=== PATIENT | female | born 1990 | race Caucasian/White ===

== ENCOUNTER → 2016-12-28 | Outpatient (CLI) | payer OTHER ==
[~2016-12-28] MED LIST: ALBUAER2 INH; ASPI-461 PO; CITA40TA4 PO; FLUT1INH PO; PRENTAB26 PO; SUMA1INJ5 IM; SUMA20SP
[2016-12-28 15:46] LABS: BASO % 0.1 %; BASO ABS # 0.01 K/uL (0-0.2); COMPLETE YES; EOS % 0.6 %; HEMATOCRIT 34.7 % (37-47); IG% 0.2 %; LYMPH % 21.8 %; LYMPH ABS # 2.21 K/uL (1.2-3.4); MEAN CELL VOLUME 86.5 fL (80-100); MEAN CORPUSCULAR HEMOGLOBIN 29.7 pg (25-34); MEAN CORPUSCULAR HGB CONC 34.3 g/dl (32-36); MEAN PLATELET VOLUME 9.6 fL (7.4-10.4); MONO % 7.9 %; NEUT % 69.4 %; PLATELET COUNT 206 K/uL (130-400); RED BLOOD COUNT 4.01 M/uL (4.2-5.4); WHITE BLOOD COUNT 10.16 K/uL (4.8-10.8)
[2016-12-28 16:25] LABS: URINE APPEARANCE CLEAR (CLEAR); URINE BILIRUBIN NEG (NEG); URINE COLOR YELLOW; URINE EPITHELIAL CELL AUTO >30 /lpf (0-5); URINE NITRITE NEG (NEG); URINE SPECIFIC GRAVITY 1.024 (1.000-1.030); UROBILINOGEN NEG (NEG)
[2016-12-28 16:29] LABS: MANUAL MICROSCOPIC REQUIRED? NO; REVIEW REQ? YES
[2016-12-28 17:43] LABS: ALT/SGPT 12 U/L (12-78); AST/SGOT 6 U/L (15-37); CREATININE 0.59 mg/dl (0.60-1.20); URIC ACID 2.8 mg/dl (2.6-7.2)
[2016-12-31 01:21] LABS: CHLAMYDIA TRACH RNA*** NOT DETECTED (NOT DETECTED); GC (NEIS GONORRHOEAE)RNA** NOT DETECTED (NOT DETECTED)
== END | disposition home or self-care (01) ==
LOC: C.LAB1850 14:41
PROVIDERS: ATTEND Obstetrics & Gynecology
DX: O34.219 Maternal care for unspecified type scar from previous cesarean delivery (principal); O14.10 Severe pre-eclampsia, unspecified trimester; Z3A.00 Weeks of gestation of pregnancy not specified

== ENCOUNTER → 2017-02-04 | Outpatient (CLI) | payer OTHER ==
[2017-02-04 20:08] LABS: URINE TOTAL PROTEIN CALC 185.5 mg/24 hr (0-149.1)
== END | disposition home or self-care (01) ==
LOC: C.LABSPEC 17:35
PROVIDERS: ATTEND Obstetrics & Gynecology
DX: O14.10 Severe pre-eclampsia, unspecified trimester (principal)

== ENCOUNTER → 2017-02-23 | Outpatient (CLI) | payer OTHER ==
[2017-02-23 15:11] LABS: GTGD 50 Grams
== END | disposition home or self-care (01) ==
LOC: C.LAB1850 11:00
PROVIDERS: ATTEND Obstetrics & Gynecology
DX: O09.92 Supervision of high risk pregnancy, unspecified, second trimester (principal)

== ENCOUNTER 2017-03-09 20:15 | Outpatient (CLI) | payer OTHER ==
[~2017-03-09] VITALS: Ht 177.8 cm; Wt 73.0 kg
[~2017-03-09 20:15] MED LIST changes: -ASPI-461 PO; -PRENTAB26 PO
[2017-03-09 21:06] VITALS: Ht 177.8 cm; Wt 73.0 kg
== END 2017-03-09 20:50 | disposition home or self-care (01) ==
LOC: C.OPB 20:15 → C.LD 20:15 → C.OPB 20:50
PROVIDERS: ATTEND Obstetrics & Gynecology
DX: O99.89 Other specified diseases and conditions complicating pregnancy, childbirth and the puerperium (principal); R52 Pain, unspecified; Z3A.18 18 weeks gestation of pregnancy

== ENCOUNTER → 2017-05-11 | Outpatient (CLI) | payer OTHER ==
[~2017-05-11] MED LIST changes: +ASPI-461 PO; +PRENTAB26 PO
[2017-05-11 14:50] LABS: BASO % 0.1 %; BASO ABS # 0.01 K/uL (0-0.2); COMPLETE YES; EOS % 1.2 %; IG% 0.2 %; LYMPH % 16.4 %; LYMPH ABS # 1.67 K/uL (1.2-3.4); MEAN CELL VOLUME 88.4 fL (80-100); MEAN CORPUSCULAR HEMOGLOBIN 30.3 pg (25-34); MEAN CORPUSCULAR HGB CONC 34.3 g/dl (32-36); MEAN PLATELET VOLUME 10.4 fL (7.4-10.4); MONO % 6.7 %; NEUT % 75.4 %; PLATELET COUNT 168 K/uL (130-400); RED BLOOD COUNT 3.96 M/uL (4.2-5.4); WHITE BLOOD COUNT 10.19 K/uL (4.8-10.8)
[2017-05-11 15:11] LABS: ALT/SGPT 16 U/L (12-78); AST/SGOT 10 U/L (15-37); CREATININE 0.69 mg/dl (0.60-1.20)
[2017-05-11 16:36] LABS: URINE APPEARANCE CLEAR (CLEAR); URINE BILIRUBIN NEG (NEG); URINE COLOR YELLOW; URINE EPITHELIAL CELL AUTO >30 /lpf (0-5); URINE NITRITE NEG (NEG); URINE PH 6.5 (4.5-7.5); URINE SPECIFIC GRAVITY 1.018 (1.000-1.030); UROBILINOGEN NEG (NEG)
[2017-05-11 16:38] LABS: MANUAL MICROSCOPIC REQUIRED? NO; REVIEW REQ? NO
[2017-05-11 17:09] LABS: GTGD 50 Grams
== END | disposition home or self-care (01) ==
LOC: C.LAB1850 13:46
PROVIDERS: ATTEND Obstetrics & Gynecology
DX: O09.93 Supervision of high risk pregnancy, unspecified, third trimester (principal); O14.10 Severe pre-eclampsia, unspecified trimester

== ENCOUNTER 2017-05-18 11:24 | Outpatient (CLI) | payer OTHER ==
[~2017-05-18 11:24] MED LIST changes: -ASPI-461 PO; -PRENTAB26 PO
[2017-05-18 12:12] LABS: BASO % 0.1 %; BASO ABS # 0.01 K/uL (0-0.2); EOS % 0.6 %; HEMATOCRIT 36.3 % (37-47); IG% 0.4 %; LYMPH % 16.5 %; LYMPH ABS # 1.78 K/uL (1.2-3.4); MEAN CELL VOLUME 88.1 fL (80-100); MEAN CORPUSCULAR HEMOGLOBIN 29.4 pg (25-34); MEAN PLATELET VOLUME 9.8 fL (7.4-10.4); MONO % 7.1 %; NEUT % 75.3 %; PLATELET COUNT 187 K/uL (130-400); RED BLOOD COUNT 4.12 M/uL (4.2-5.4); WHITE BLOOD COUNT 10.82 K/uL (4.8-10.8)
[2017-05-18 12:22] LABS: INR 0.9 (0.9-1.1); PROTHROMBIN TIME (PATIENT) 9.9 SECONDS (9.0-12.0)
[2017-05-18 12:25] LABS: COMPLETE YES; MEAN CORPUSCULAR HGB CONC 33.3 g/dl (32-36)
[2017-05-18] MEDS ORDERED: ALBUTEROL HFA 8 GM INHALER INH PRN (12:30)
[2017-05-18] MEDS ORDERED: BUTALBITAL/ACETAMIN/CAFFEINE TAB PO PRN (12:30)
[2017-05-18 12:37] LABS: ALT/SGPT 17 U/L (12-78); AST/SGOT 12 U/L (15-37); CREATININE 0.68 mg/dl (0.60-1.20)
== END 2017-05-18 13:27 | disposition home or self-care (01) ==
LOC: C.OPB 11:24 → C.LD 11:24 → C.OPB 13:27
PROVIDERS: ATTEND Obstetrics & Gynecology
DX: O99.89 Other specified diseases and conditions complicating pregnancy, childbirth and the puerperium (principal); R03.0 Elevated blood-pressure reading, without diagnosis of hypertension; Z3A.28 28 weeks gestation of pregnancy

== ENCOUNTER → 2017-05-19 | Outpatient (CLI) | payer OTHER ==
[~2017-05-19] MED LIST changes: +ASPI-461 PO; +PRENTAB26 PO
[2017-05-19 14:44] LABS: PATIENT HEIGHT 175.3 cm
[2017-05-19 19:07] LABS: URINE TOTAL PROTEIN 12.8 mg/dl (0-11.9)
[2017-05-19 19:54] LABS: CREATININE 0.62 mg/dl (0.6-1.2); URINE TOTAL PROTEIN CALC 179.2 mg/24 hr (0-149.1)
== END | disposition home or self-care (01) ==
LOC: C.LABBFT 08:30
PROVIDERS: ATTEND Obstetrics & Gynecology
DX: O14.10 Severe pre-eclampsia, unspecified trimester (principal)

== ENCOUNTER → 2017-05-25 | Outpatient (CLI) | payer OTHER ==
[2017-05-25 12:13] LABS: BASO % 0.2 %; BASO ABS # 0.02 K/uL (0-0.2); COMPLETE YES; HEMATOCRIT 36.8 % (37-47); IG% 0.2 %; LYMPH % 26.8 %; MEAN CELL VOLUME 87.4 fL (80-100); MEAN CORPUSCULAR HEMOGLOBIN 30.2 pg (25-34); MEAN CORPUSCULAR HGB CONC 34.5 g/dl (32-36); MEAN PLATELET VOLUME 10.7 fL (7.4-10.4); MONO % 8.5 %; NEUT % 63.3 %; PLATELET COUNT 224 K/uL (130-400); RED BLOOD COUNT 4.21 M/uL (4.2-5.4); WHITE BLOOD COUNT 10.45 K/uL (4.8-10.8)
[2017-05-25 13:41] LABS: ALT/SGPT 18 U/L (12-78); BLOOD UREA NITROGEN 10 mg/dl (7-18); BUN/CREATININE RATIO 14.8 (10-20); CALCIUM 8.8 mg/dl (8.5-10.1); CARBON DIOXIDE 21 mmol/L (21-32); CHLORIDE 111 mmol/L (98-107); CREATININE 0.67 mg/dl (0.60-1.20); GLUCOSE 57 mg/dl (70-99); POTASSIUM 3.9 mmol/L (3.5-5.1); SODIUM 141 mmol/L (136-145)
[2017-05-25 13:44] LABS: ALB/GLOB RATIO 0.8 (0.9-2); ALKALINE PHOSPHATASE 100 U/L (45-117); AST/SGOT 12 U/L (15-37)
== END | disposition home or self-care (01) ==
LOC: C.LAB1850 10:54
PROVIDERS: ATTEND Obstetrics & Gynecology
DX: O13.9 Gestational [pregnancy-induced] hypertension without significant proteinuria, unspecified trimester (principal)

== ENCOUNTER 2017-06-02 15:02 | Outpatient (CLI) | payer OTHER ==
[~2017-06-02] VITALS: Ht 175.3 cm; Wt 81.0 kg
[~2017-06-02 15:02] MED LIST changes: -ASPI-461 PO; -PRENTAB26 PO
[2017-06-02] MEDS ORDERED: LACTATED RINGER'S 1000ML 1,000 ML IV SCH (15:24)
[2017-06-02 15:43] LABS: BASO % 0.1 %; BASO ABS # 0.01 K/uL (0-0.2); EOS % 0.7 %; HEMATOCRIT 35.6 % (37-47); IG% 0.2 %; LYMPH % 18.5 %; LYMPH ABS # 1.97 K/uL (1.2-3.4); MEAN CELL VOLUME 86.6 fL (80-100); MEAN CORPUSCULAR HEMOGLOBIN 29.4 pg (25-34); MEAN PLATELET VOLUME 10.2 fL (7.4-10.4); MONO % 9.2 %; NEUT % 71.3 %; PLATELET COUNT 172 K/uL (130-400); RED BLOOD COUNT 4.11 M/uL (4.2-5.4); WHITE BLOOD COUNT 10.64 K/uL (4.8-10.8)
[2017-06-02 15:46] LABS: COMPLETE YES
[2017-06-02 15:55] LABS: INR 0.9 (0.9-1.1); PARTIAL THROMBOPLASTIN RATIO 1.1; PROTHROMBIN TIME (PATIENT) 9.5 SECONDS (9.0-12.0)
[2017-06-02 16:27] LABS: ALKALINE PHOSPHATASE 113 U/L (45-117); ALT/SGPT 18 U/L (12-78); AST/SGOT 13 U/L (15-37); CREATININE 0.59 mg/dl (0.60-1.20)
[2017-06-02 16:35] LABS: URINE TOTAL PROTEIN 116.5 mg/dl (0-11.9)
[2017-06-02 16:39] VITALS: Ht 175.3 cm; Wt 81.0 kg
[2017-06-02] MEDS ORDERED: ASPI-461 PO (16:42)
[2017-06-02] MEDS ORDERED: PRENTAB26 PO (16:42)
[2017-06-02 16:46] LABS: URINE PROTIEN/CREAT RATIO 0.8 (0-0.2)
[2017-06-02] MEDS ORDERED: BETAMETH SOD PHOS/ACETATE IA 6 MG/ML IM SCH (17:15)
[2017-06-02] MEDS ORDERED: MAGNESIUM SULFATE / WTR 1,000 ML IV PRN (17:29)
--- NOTE | 2017-06-02 17:29 | History and Physical ---
History & Physical Date Jun 02, 2017. Chief Complaint 1) Complicated at 30 (+) wks GA 2) Severe pre-eclampsia 3) IUGR 4) Previous C/S History of Present Illness The patient is a 27 year 2 para 0101, with an EDC of 08/07/2017 at 30+ weeks gestational age who presents to labor and delivery for evaluation of elevated blood pressure and protein in the urine. The patient was seen in the office today and noted to have a diastolic of 120 with +2 protein was sent to labor and delivery for evaluation. The patient's first ended at 34 weeks with a section for severe PIH, IUGR, and nonreassuring heart rate tracing. The patient was normotensive at her first visit. The patient had baseline labs at her new visit and has been on baby aspirin for the . At approximately 28 weeks' gestational age the patient's blood pressure began to be elevated. She had a 24-hour urine at 28 weeks which was within normal limits and had normal PIH labs at both 28 and 29 weeks. The patient was seen today with the elevated blood pressure and protein in the urine and was sent to labor and delivery for evaluation. The patient is not complaining of any right upper quadrant pain. She has had trouble with headache but she has had chronic headaches throughout the . The patient's blood type is O- antibody negative she received RhoGAM on 613. She is hepatitis B negative, she had a normal negative panorama, with a normal 1 hour Glucola 2 Past Medical/Surgical History Medical Problems: (1) Abdominal pain (2) Benign hypertension (3) Dental caries (4) Dentalgia (5) Diarrhea (6) Gestational [-induced] hypertension without significant proteinuria , third trimester (7) Hand contusion (8) Kidney stone (9) Pain, dental (10) with 28 completed weeks gestation (11) (12) Severe pre-eclampsia (13) Upper respiratory infection (14) Upper respiratory infection due to siva influenza virus (15) Upper respiratory tract infection (16) Viral exanthem Surgical Problems: (1) section (2) Hand crush injury (3) Tonsillectomy Additional History Hepatic Disease: No Endocrine Disorder: No Kidney Disease: No Hypertension: Heart Disease: No Bleeding Tendencies: No Infectious Diseases: No Allergies Coded Allergies: No Known Allergies (Unverified , 06/02/17) Home Medications Scheduled Aspirin (Aspirin), 1 TAB PO DAILY Multivit/Min/Iron/Fol Ac/Pren ( Vitamin), 1 TAB PO DAILY Scheduled PRN Albuterol (Ventolin), 2 PUFFS INH Q4H PRN for Wheezing Physical Examination Skin: warm/dry, no rash Eyes: normal inspection, EOMI, sclerae normal ENT: normal ENT inspection, pharynx normal Head: normocephalic, atraumatic Neck: supple, no adenopathy, trachea midline Respiratory/Chest: lungs clear, normal breath sounds, no respiratory distress Cardiovascular: regular rate, rhythm, no edema, no murmur Abdomen / GI: + pertinent finding (gravid, vertex, (+) FHT's, EFW 3lbs) Back: normal inspection Extremities: normal inspection, normal range of motion Neurologic/Psych: normal reflexes Plan of Treatment Ultrasound done in the office today shows a symmetrical IUGR with an estimated weight at the 2nd percentile. Umbilical Doppler studies were normal. Laboratory values here on labor and delivery show a spot urine/creatinine ratio consistent with 832 mg of total protein. Blood pressures here have been ranging with diastolics between 100 and 107. With the laboratory evaluations the diagnosis of preeclampsia and with the elevated diastolic blood pressures in IUGR as I believe this meets severe criteria. Due to insurance reasons the patient's preferred tertiary care hospital is the [facility] in [place]. I contacted [facility] directly and there maternal- medicine units as their nursery is closed and they declined the transport. I have now discussed the case with Dr. Cheatham, maternal- medicine specialist at the [facility]. Dr. Cheatham has agreed to accept the patient in transport. The patient will receive Celestone 12 mg IM and will be started on magnesium 4 g IV bolus then 2 g per hour. Risks and benefits of the transport have been discussed with the patient and she has consented.
[2017-06-02] MEDS ORDERED: MAGNESIUM SULFATE 4GM / WTR 100ML IV ONE (18:00)
== END 2017-06-02 18:40 | disposition short-term general hospital (02) ==
LOC: C.LD 15:02 → C.OPB 15:02
PROVIDERS: ATTEND Obstetrics & Gynecology
DX: O14.13 Severe pre-eclampsia, third trimester (principal); O36.5930 Maternal care for other known or suspected poor fetal growth, third trimester, not applicable or unspecified; Z3A.30 30 weeks gestation of pregnancy; Z79.82 Long term (current) use of aspirin

== ENCOUNTER → 2017-08-03 | Outpatient (CLI) | payer OTHER ==
[~2017-08-03] MED LIST changes: +ASPI-461 PO; -CITA40TA4 PO; -FLUT1INH PO; +PRENTAB26 PO; -SUMA1INJ5 IM; -SUMA20SP
== END | disposition home or self-care (01) ==
LOC: C.PAPS 08:49
PROVIDERS: ATTEND Obstetrics & Gynecology
DX: Z12.4 Encounter for screening for malignant neoplasm of cervix (principal)